=== PATIENT | male | born 1990 | race Caucasian/White ===

== ENCOUNTER 2024-08-27 10:56 | Emergency (ER) | payer SELFPAY ==
[~2024-08-27] VITALS: Ht 170.2 cm; Wt 113.3 kg
[2024-08-27 11:15] VITALS: O2SAT 97
[2024-08-27] MEDS: HYDROCODONE/ACETAMINOPHEN 5/325MG TABLET PO ONE (13:38)
[2024-08-27] MEDS: BACITRACIN ZINC OINT UDPKT TOP ONE (13:38)
[2024-08-27] MEDS: TETANUS, DIPHTHERIA, PERTUSSIS VAC/PF 0.5ML (>10YR OLD) IM ONE (13:38)
[2024-08-27] MEDS ORDERED: IBUP-2029 MT (13:44)
[2024-08-27 13:54] VITALS: BP 133/82; PULSE 80; RESP 18; TEMP 36.6; O2SAT 97
== END 2024-08-27 15:35 | disposition home or self-care (01) ==
LOC: ER 11:02
DX: S52.592A Other fractures of lower end of left radius, initial encounter for closed fracture (principal); W19.XXXA Unspecified fall, initial encounter; Y93.89 Activity, other specified; Y92.89 Other specified places as the place of occurrence of the external cause; Y99.8 Other external cause status
CPT/HCPCS: 73110; 29105; 99283; Z7610; 90715; A6449